=== PATIENT | female | born 2000 | race Caucasian/White ===

== ENCOUNTER 2019-03-10 17:15 | Emergency (ER) | payer OTHER ==
[~2019-03-10] VITALS: Ht 152.4 cm; Wt 45.8 kg
[2019-03-10 17:20] VITALS: BP 133/80
--- NOTE | 2019-03-10 17:42 | NUR ---
PT TO ED WITH C/O LOWER ABD PAIN WITH DYSURIA X 4 DAYS. PT DENIES VAGINAL DISCHARGE OR ODOR. REPORTS PAIN ONLY UPON URINATION. ABD IS SOFT NON TENDER. NO DISTENTION NOTED. PT PLACED INTO BED, PENDING MD AGARWAL.
--- NOTE | 2019-03-10 17:52 | NUR ---
PT TAKEN TO CT VIA WHEELCHAIR
[2019-03-10 18:07] LABS: APPEARANCE,URINE CLOUDY (CLEAR); BILIRUBIN,URINE 2+ (NEGATIVE); BLOOD, URINE 3+ (NEGATIVE); COLOR,URINE YELLOW (YELLOW); LEUKOCYTE ESTERASE ,URINE 2+ (NEGATIVE); NITRITE, URINE NEGATIVE (NEGATIVE); UGLUCOSE NEGATIVE (NEGATIVE)
[2019-03-10 18:33] LABS: RBC,URINE TOO NUMEROUS TO COUN /HPF (0-5); WBC,URINE TOO MANY TO COUNT /HPF (0-5)
[2019-03-10 18:33] LABS: BASOPHILS % (AUTO) 0.2 % (0.0-2.0); EOSINOPHILS % (AUTO) 0.1 % (0.0-4.0); HEMATOCRIT 42.7 % (36-48); HEMOGLOBIN 14.2 g/dL (12.0-16.0); LYMPHOCYTES # (AUTO) 0.7 K/uL (2.5-16.5); MEAN CORPUSCULAR HEMOGLOBIN 31 pg (27-31); MEAN CORPUSCULAR HGB CONC 33 g/dL (33-37); MEAN CORPUSCULAR VOLUME 92.3 fL (80-94); MONOCYTES # (AUTO) 1.5 K/uL (0.8-1.0); MONOCYTES % (AUTO) 9.6 % (1.7-9.3); NEUTROPHILS # (AUTO) 13.3 K/uL (1.8-7.7); NEUTROPHILS % (AUTO) 85.9 % (42.2-75.2); PLATELET COUNT (AUTO) 234 K/uL (140-450); RED BLOOD CELL COUNT(AUTO) 4.62 MIL/uL (4.20-5.40); RED CELL DISTRIBUTION WIDTH 14.3 % (11.6-13.7)
[2019-03-10 18:35] LABS: LYMPHOCYTES % (AUTO) 4.2 % (20.5-51.1)
[2019-03-10 18:36] LABS: WHITE BLOOD COUNT (AUTO) 15.5 K/uL (4.5-11.0)
[2019-03-10 18:46] LABS: ANION GAP 10.6 (8-16); CARBON DIOXIDE 27.9 mmol/L (21-32); CREATININE 0.9 mg/dL (0.6-1.3); POTASSIUM 3.5 mmol/L (3.5-5.1)
[2019-03-10 18:52] LABS: ALBUMIN 3.6 g/dL (3.4-5.0); TOTAL BILIRUBIN 0.4 mg/dL (0.0-1.0)
--- NOTE | 2019-03-10 19:18 | NUR ---
RECEIVED REPORT FROM MARTÍN MARIE.
--- NOTE | 2019-03-10 20:00 | NUR ---
Patient appears to be sleeping comfortably in bed. Vital Signs within normal limits. Respirations even and unlabored.
[2019-03-10] MEDS ORDERED: NACL 0.9% 1,000 ML IV ONE (20:15)
[2019-03-10] MEDS ORDERED: cefTRIAXone 1,000 MG VIAL ONE (20:33)
[2019-03-10 21:09] VITALS: BP 133/77
--- NOTE | 2019-03-10 21:09 | NUR ---
Patient discharged with v/s stable. Written and verbal after care instructions given and explained. Patient alert, oriented and verbalized understanding of instructions. Ambulatory with steady gait. All questions addressed prior to discharge. ID band removed. Patient advised to follow up with PMD. Rx of Levaquin given. Patient educated on indication of medication including possible reaction and side effects. Opportunity to ask questions provided and answered.
--- NOTE | 2019-03-14 12:41 | NUR ---
Late entry. Confirmed with RN that 1000ml 0.9NS IV completed at 2100. Rocephin IVPB compled at 2100
--- NOTE | 2019-03-15 12:37 | NUR ---
Late entry. Marco IVPB completed at 2054
== END 2019-03-10 21:09 | disposition home or self-care (01) ==
LOC: MED 17:15
DX: N12 Tubulo-interstitial nephritis, not specified as acute or chronic (principal); K59.00 Constipation, unspecified
CPT/HCPCS: 36415; 74021; 76705; 80053; 81001; 81025; 83690; 85025; 87086; 87186; 96365; 99284; J0696; J7030; J7060; Q0092

== ENCOUNTER 2021-01-05 21:52 | Emergency (ER) | payer OTHER ==
[~2021-01-05] VITALS: Ht 160 cm; Wt 54.4 kg
[2021-01-05 22:03] VITALS: BP 147/79
--- NOTE | 2021-01-05 22:03 | NUR ---
TO BED AMBULATORY
--- NOTE | 2021-01-05 22:08 | NUR ---
PATIENT AMBULATED TO RESTROOM WITH STEADY GAIT.
--- NOTE | 2021-01-05 22:10 | NUR ---
PATIENT 20 Y.O. BIB SELF FOR C/O 12/05 RLQ ABDOMINAL PAIN THAT RADIATES TO RIGHT LOWER BACK X 3 DAYS. A&O X4. PATIENT STATES PAIN IS SHARP. PATIENT ALSO REPORTS URINARY BURNING AND URGENCY. PATIENT ALSO REPORT "I HAD A CONDITION WHEN I WAS YOUNGER WHERE MY URINE WOULD BACK UP INTO MY KIDNEYS, THEN I HAD SURGERY TO FIX IT." PATIENT DENIES FEVER OR CHILLS, CP, SOB AT THIS TIME. SKIN IS WARM, DRY AND INTACT. BOWEL SOUNDS ACTIVE X 4 QUADRANTS. ABDOMEN IS FLAT AND SOFT. SEE COMPLETE ASSESSMENT FOR FURTHER DETAILS. MED HX: Vesicoureteral reflux ALLERGIES: NKA
[2021-01-05] MEDS ORDERED: KETOROLAC 30 MG/ML VIAL IVP ONE (22:40)
[2021-01-05] MEDS ORDERED: ONDANSETRON 4 MG/2 ML VIAL IVP ONE (22:40)
--- NOTE | 2021-01-05 22:50 | NUR ---
LABS DRAWN AND HAND GIVEN TO [employer].
[2021-01-05 22:56] LABS: APPEARANCE,URINE SL CLOUDY (CLEAR); BASOPHILS % (AUTO) 0.3 % (0.0-2.0); BILIRUBIN,URINE NEGATIVE (NEGATIVE); BLOOD, URINE 3+ (NEGATIVE); COLOR,URINE YELLOW (YELLOW); EOSINOPHILS # (AUTO) 0.2 K/uL (0-0.4); EOSINOPHILS % (AUTO) 1.5 % (0.0-4.0); HEMATOCRIT 38.9 % (36-48); HEMOGLOBIN 12.9 g/dL (12.0-16.0); LEUKOCYTE ESTERASE ,URINE 1+ (NEGATIVE); LYMPHOCYTES # (AUTO) 1.5 K/uL (2.5-16.5); LYMPHOCYTES % (AUTO) 11.4 % (20.5-51.1); MEAN CORPUSCULAR HEMOGLOBIN 30 pg (27-31); MEAN CORPUSCULAR HGB CONC 33 g/dL (33-37); MEAN CORPUSCULAR VOLUME 90.4 fL (80-94); MONOCYTES # (AUTO) 1.6 K/uL (0.8-1.0); MONOCYTES % (AUTO) 12.5 % (1.7-9.3); NEUTROPHILS # (AUTO) 9.7 K/uL (1.8-7.7); NEUTROPHILS % (AUTO) 74.3 % (42.2-75.2); NITRITE, URINE NEGATIVE (NEGATIVE); PLATELET COUNT (AUTO) 303 K/uL (140-450); RED CELL DISTRIBUTION WIDTH 13.4 % (11.6-13.7); UGLUCOSE NEGATIVE (NEGATIVE)
[2021-01-05 23:17] LABS: RBC,URINE 11-20 (MOD) /HPF (0-5); WBC,URINE TOO MANY TO COUNT /HPF (0-5)
[2021-01-05 23:18] LABS: CALCIUM OXALATE CRYSTALS,UR 0-5 /HPF (None Seen)
[2021-01-05 23:22] LABS: ALBUMIN 3.4 g/dL (3.4-5.0); ANION GAP 11.9 (8-16); CARBON DIOXIDE 25.9 mmol/L (21-32); CREATININE 1.1 mg/dL (0.6-1.3); POTASSIUM 3.8 mmol/L (3.5-5.1); TOTAL BILIRUBIN 0.1 mg/dL (0.0-1.0)
[2021-01-05] MEDS ORDERED: NACL 0.9% 500 ML IV ONE (23:30)
[2021-01-05] MEDS ORDERED: cefTRIAXone 1,000 MG VIAL ONE (23:35)
[2021-01-05] MEDS ORDERED: CEPH500C16 PO (23:46)
[2021-01-05] MEDS ORDERED: PYR100 PO (23:46)
--- NOTE | 2021-01-05 23:51 | NUR ---
ERMD AT BEDSIDE.
[2021-01-06 00:45] VITALS: BP 126/80
--- NOTE | 2021-01-06 00:45 | NUR ---
IV removed, catheter intact and site benign. Applied folded 4x4 gauze and tape to stop bleeding.
--- NOTE | 2021-01-06 00:45 | NUR ---
Patient discharged with v/s stable. Written and verbal after care instructions given and explained. Patient alert, oriented and verbalized understanding of instructions. Ambulatory with steady gait. All questions addressed prior to discharge. ID band removed. Patient advised to follow up with PMD. Rx of KEFLEX, PYRIDIUM given. Patient educated on indication of medication including possible reaction and side effects. Opportunity to ask questions provided and answered.
== END 2021-01-06 00:45 | disposition home or self-care (01) ==
LOC: MED 21:52
DX: N39.0 Urinary tract infection, site not specified (principal)
CPT/HCPCS: 36415; 80053; 81001; 81025; 83690; 85025; 87086; 96361; 96365; 96375; 99284; J0696; J1885; J2405; J7030; J7060

== ENCOUNTER 2021-04-18 01:55 | Emergency (ER) | payer OTHER ==
[~2021-04-18] VITALS: Ht 149.9 cm; Wt 53.1 kg
[~2021-04-18 01:55] MED LIST: CEPH500C16 PO; PYR100 PO
[2021-04-18 02:06] VITALS: BP 126/88
[2021-04-18 03:55] VITALS: BP 118/72
--- NOTE | 2021-04-18 03:55 | NUR ---
Patient discharged with v/s stable. Written and verbal after care instructions given and explained. Patient alert, oriented and verbalized understanding of instructions. Ambulatory with steady gait. All questions addressed prior to discharge. ID band removed. Patient advised to follow up with PMD. Opportunity to ask questions provided and answered.
== END 2021-04-18 03:55 | disposition home or self-care (01) ==
LOC: MED 01:55
DX: M79.89 Other specified soft tissue disorders (principal); M79.601 Pain in right arm; M79.602 Pain in left arm
CPT/HCPCS: 99282

== ENCOUNTER 2021-06-17 11:47 | Emergency (ER) | payer OTHER ==
[~2021-06-17] VITALS: Ht 152.4 cm; Wt 55.3 kg
[2021-06-17 12:09] VITALS: BP 155/89
--- NOTE | 2021-06-17 12:19 | NUR ---
Pt ambulated to bed 01.
--- NOTE | 2021-06-17 12:30 | NUR ---
20 Y/O FEMALE BIBS C/O DYSURIA, FREQUENCY, URGENCY AND LOWER BACK PAIN X3 DAYS. DENIES HEMATURIA. PT WAS ADMITTED HERE 03/18 FOR SEPSIS UTI. FLANK PAIN 01/05. DENIES FEVER, CHILLS, N/V/D. PLACED IN GOWN, URINE SAMPLE COLLECTED, A&OX4. PMH:DENIES NKDA
--- NOTE | 2021-06-17 13:37 | NUR ---
ULTRASOUND DONE AT BEDSIDE BY US TECH.
[2021-06-17] MEDS ORDERED: KETOROLAC 15 MG/ML VIAL IVP ONE (13:40)
[2021-06-17] MEDS ORDERED: NACL 0.9% 1,000 ML IV ONE (13:40)
--- NOTE | 2021-06-17 14:00 | NUR ---
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
[2021-06-17 14:11] LABS: BASOPHILS % (AUTO) 0.2 % (0.0-2.0); EOSINOPHILS % (AUTO) 0.3 % (0.0-4.0); HEMATOCRIT 38.2 % (36-48); HEMOGLOBIN 12.7 g/dL (12.0-16.0); LYMPHOCYTES # (AUTO) 0.4 K/uL (2.5-16.5); LYMPHOCYTES % (AUTO) 3.2 % (20.5-51.1); MEAN CORPUSCULAR HEMOGLOBIN 31 pg (27-31); MEAN CORPUSCULAR HGB CONC 33 g/dL (33-37); MEAN CORPUSCULAR VOLUME 92.7 fL (80-94); MONOCYTES % (AUTO) 7.1 % (1.7-9.3); NEUTROPHILS % (AUTO) 89.2 % (42.2-75.2); PLATELET COUNT (AUTO) 279 K/uL (140-450); RED BLOOD CELL COUNT(AUTO) 4.12 MIL/uL (4.20-5.40); RED CELL DISTRIBUTION WIDTH 13.2 % (11.6-13.7); WHITE BLOOD COUNT (AUTO) 13.4 K/uL (4.8-10.8)
--- NOTE | 2021-06-17 14:25 | NUR ---
20G IV TO R AC EST AT THIS TIME, BOLUS OF NS STARTED.
[2021-06-17 14:28] LABS: APPEARANCE,URINE CLEAR (CLEAR); BILIRUBIN,URINE NEGATIVE (NEGATIVE); BLOOD, URINE 3+ (NEGATIVE); COLOR,URINE YELLOW (YELLOW); LEUKOCYTE ESTERASE ,URINE 1+ (NEGATIVE); NITRITE, URINE NEGATIVE (NEGATIVE); UGLUCOSE NEGATIVE (NEGATIVE)
[2021-06-17 14:45] LABS: RBC,URINE 11-20 (MOD) /HPF (0-5)
[2021-06-17] MEDS ORDERED: KETOROLAC 15 MG/ML VIAL ONE (14:52)
--- NOTE | 2021-06-17 15:41 | NUR ---
PATIENT RESTING IN BED AT THIS TIME, AWAKE AND ALERT.
[2021-06-17 15:49] LABS: ALBUMIN 3.5 g/dL (3.4-5.0); ANION GAP 14.1 (8-16); CARBON DIOXIDE 24.9 mmol/L (21-32); TOTAL BILIRUBIN 0.2 mg/dL (0.0-1.0)
[2021-06-17] MEDS ORDERED: IBUP-2213 PO (16:31)
[2021-06-17] MEDS ORDERED: CIPR500T4 PO (16:31)
[2021-06-17 17:05] VITALS: BP 137/90
--- NOTE | 2021-06-17 17:05 | NUR ---
Patient discharged with v/s stable. Written and verbal after care instructions given and explained. Patient alert, oriented and verbalized understanding of instructions. Ambulatory with steady gait. All questions addressed prior to discharge. ID band removed. Patient advised to follow up with PMD. Rx of CIPRO, IBUPROFEN given. Patient educated on indication of medication including possible reaction and side effects. Opportunity to ask questions provided and answered.
[2021-06-21] MEDS ORDERED: ACET-1182 PO (11:39)
[2021-06-21] MEDS ORDERED: LEVO750T51 PO (11:39)
== END 2021-06-17 17:05 | disposition home or self-care (01) ==
LOC: MED 11:47
DX: N39.0 Urinary tract infection, site not specified (principal); F17.200 Nicotine dependence, unspecified, uncomplicated; Z79.899 Other long term (current) drug therapy
CPT/HCPCS: 36415; 76770; 80053; 81001; 81025; 83605; 85025; 87040; 87086; 96361; 96374; 99284; J1885; J7030; Q0092